=== PATIENT | male | born 1980 | race Caucasian/White ===

== ENCOUNTER 2018-06-19 07:14 | Emergency (ER) | payer OTHER ==
[~2018-06-19] VITALS: Ht 170.2 cm; Wt 64.9 kg
[~2018-06-19 07:14] MED LIST: TORADOL10 MG PO
== END 2018-06-19 13:35 | disposition home or self-care (01) ==
LOC: ER 07:14
DX: N21.0 Calculus in bladder (principal); N20.0 Calculus of kidney

== ENCOUNTER 2024-05-13 16:18 | Emergency (ER) | payer OTHER ==
[~2024-05-13] VITALS: Ht 170.2 cm; Wt 77.1 kg
[2024-05-13 16:21] VITALS: BP 152/94; O2SAT 100
== END 2024-05-13 18:42 | disposition home or self-care (01) ==
LOC: ER 16:20
DX: L30.9 Dermatitis, unspecified (principal); Z91.013 Allergy to seafood

== ENCOUNTER 2024-07-31 18:45 | Emergency (ER) | payer OTHER ==
[~2024-07-31] VITALS: Ht 170.2 cm; Wt 74.8 kg
[2024-07-31] MEDS ORDERED: KETOROLAC TROMETHAMINE 30 MG VIAL IV STA (20:33)
[2024-07-31] MEDS ORDERED: OxyCODONE HCL/APAP UD (PERCOCET) PO STA (20:34)
[2024-07-31] MEDS ORDERED: KETOROLAC TROMETHAMINE 30 MG VIAL ONE (21:00)
[2024-07-31 21:24] LABS: HEMATOCRIT 39.9 % (39.0-48.0); HEMOGLOBIN 13.5 g/dL (13-16.00); MEAN CELL VOLUME 88.7 fL (80.0-100.00); MEAN CORPUSCULAR HEMOGLOBIN 30.1 pg (27.00-32.0); MEAN CORPUSCULAR HGB CONC 33.9 g/dl (32.0-36.0); PLATELET COUNT 193 K/uL (150-450); RED CELL DISTRIBUTION WIDTH 14.2 % (11.5-14.5)
[2024-07-31 21:44] LABS: PH,URINE 5.5 (5.0-8.0); URINE APPEARANCE Clear; URINE BILIRRUBIN Negative (NEGATIVE); URINE BLOOD Negative; URINE COLOR Yellow; URINE GLUCOSE Negative (NEGATIVE); URINE KETONE 15 (NEGATIVE); URINE LEUKOCYTE Negative; URINE NITRATE Negative; URINE PROTEIN Negative (NEGATIVE); URINE UROBILINOGEN 0.2 E.U./dl
[2024-07-31 21:45] LABS: CALCIUM 9.2 mg/dL (8.5-10.1); CREATININE SERUM 1.17 mg/dL (0.70-1.30); GFR 68.36; POTASSIUM 3.45 mEq/L (3.5-5.1)
[2024-07-31 21:48] LABS: URINE BACTERIA 9.7 uL (0.0-1933); URINE RBC 6.3 uL (0.0-20.8); URINE WBC 2.2 uL (0.0-23.2)
[2024-07-31 21:49] LABS: URINE CAST 1.17 uL (0.0-1.40); URINE EPITHELIAL CELLS 1.2 uL (0.0-38.8)
== END 2024-07-31 23:50 | disposition home or self-care (01) ==
LOC: ER 18:48
DX: R30.0 Dysuria (principal); N20.0 Calculus of kidney; Z91.013 Allergy to seafood